=== PATIENT | male | born 1990 | race Caucasian/White ===

== ENCOUNTER 2023-03-05 15:52 | Emergency (ER) | payer MEDICAID ==
[~2023-03-05] VITALS: Ht 162.6 cm; Wt 75.0 kg
[2023-03-05] MEDS ORDERED: OFLO5DRO EACHEYE (18:27)
[2023-03-05 18:44] VITALS: BP 138/82
== END 2023-03-05 18:45 | disposition home or self-care (01) ==
LOC: ER 15:52
DX: H10.33 Unspecified acute conjunctivitis, bilateral (principal); Z68.28 Body mass index [BMI] 28.0-28.9, adult
CPT/HCPCS: 99283